=== PATIENT | male | born 1960 | race Caucasian/White ===

== ENCOUNTER 2021-06-12 19:51 | Observation (INO) | payer OTHER ==
[~2021-06-12] VITALS: Ht 180.3 cm; Wt 104.5 kg
[2021-06-12 20:58] LABS: HEMATOCRIT 45.3 % (42.0-52.0); HEMOGLOBIN 15.6 g/dl (13.5-17.5); MEAN CORPUSCULAR HEMOGLOBIN 30.3 pg (27.0-33.0); MEAN CORPUSCULAR HGB CONC 34.4 g/dl (32.0-36.5); PLATELET COUNT, AUTOMATED 217 10^3/uL (150-450); RED BLOOD COUNT 5.15 10^6/uL (4.30-6.10); WHITE BLOOD COUNT 9.8 10^3/uL (4.0-10.0)
[2021-06-12] MEDS ORDERED: PROV108A INH (21:05)
[2021-06-12] MEDS ORDERED: ASPI81TA26 PO (21:18)
[2021-06-12] MEDS ORDERED: INCR1INH INH ×2 (21:18→22:31)
[2021-06-12] MEDS ORDERED: TOPR25TA PO (21:18)
[2021-06-12] MEDS ORDERED: SPIR-10 PO ×2 (21:18→22:31)
[2021-06-12] MEDS ORDERED: MELO15TA28 PO ×2 (21:18→22:31)
[2021-06-12] MEDS ORDERED: KEPP1TAB PO ×2 (21:18→22:31)
[2021-06-12] MEDS ORDERED: BUPR-69 PO (21:18)
[2021-06-12] MEDS ORDERED: BUSP10TA PO (21:18)
[2021-06-12] MEDS ORDERED: [UNRECOGNIZED DRUG - OTHER] (21:18)
[2021-06-12] MEDS ORDERED: MULT1TAB8 PO (21:18)
[2021-06-12] MEDS ORDERED: FENO48TA8 PO (21:18)
[2021-06-12] MEDS ORDERED: LYRI150C PO (21:18)
[2021-06-12] MEDS ORDERED: TOPA100T12 PO ×2 (21:18→22:31)
[2021-06-12] MEDS ORDERED: LIPI20TA PO (21:18)
[2021-06-12] MEDS ORDERED: VIMP100T PO ×2 (21:18→22:31)
[2021-06-12 21:20] LABS: AMPHETAMINES LEVEL URINE NEGATIVE (NEGATIVE); BARBITURATES URINE NEGATIVE (NEGATIVE); BENZODIAZEPINES URINE NEGATIVE (NEGATIVE); CANNABINOIDS URINE POSITIVE (NEGATIVE); COCAINE METABOLITE URINE NEGATIVE (NEGATIVE); METHADONE URINE NEGATIVE (NEGATIVE); OPIATES URINE NEGATIVE (NEGATIVE); PHENCYCLIDINE URINE NEGATIVE (NEGATIVE)
[2021-06-12 21:30] LABS: RSV AMPLIFICATION NEGATIVE (NEGATIVE)
[2021-06-12 21:36] LABS: ACETAMINOPHEN LEVEL < 2.0 UG/ML (10.0-30.0); ALBUMIN 4.1 GM/DL (3.2-5.2); ALT/SGPT 63 U/L (12-78); BILIRUBIN,DIRECT 0.1 MG/DL (0.0-0.2); BILIRUBIN,TOTAL 0.3 MG/DL (0.2-1.0); BLOOD UREA NITROGEN 32 MG/DL (7-18); CALCIUM LEVEL 9.5 MG/DL (8.8-10.2); CARBON DIOXIDE LEVEL 28 MEQ/L (21-32); CHLORIDE LEVEL 97 MEQ/L (98-107); CREATININE FOR GFR 1.71 MG/DL (0.70-1.30); ETHYL ALCOHOL (ETHANOL) 0.004 % (0.000-0.010); GLOMERULAR FILTRATION RATE 43.5 (>49); GLUCOSE, FASTING 428 MG/DL (70-100); POTASSIUM SERUM 4.4 MEQ/L (3.5-5.1); SALICYLATE LEVEL 3.7 MG/DL (5.0-30.0); SODIUM LEVEL 130 MEQ/L (136-145); TOTAL PROTEIN 7.5 GM/DL (6.4-8.2)
[2021-06-12] MEDS ORDERED: LACOSAMIDE 50 MG TAB (VIMPAT) PO ONE (21:45)
[2021-06-12] MEDS ORDERED: levETIRAcetam 250MG TABLET (KEPPRA) PO ONE (21:45)
[2021-06-12] MEDS ORDERED: LEVEMIR (INSULIN DETEMIR) 1 UNITS/0.01ML SC ONE (22:00)
[2021-06-12 22:07] LABS: HEMOGLOBIN A1c 11.1 %
[2021-06-12] MEDS ORDERED: BUPR150T12 PO (22:31)
[2021-06-12] MEDS ORDERED: PROAAER10 INH (22:31)
[2021-06-12] MEDS ORDERED: ASPI-161 PO (22:31)
[2021-06-12] MEDS ORDERED: ATOR40TA75 PO (22:31)
[2021-06-12] MEDS ORDERED: L-ME15TA5 PO (22:31)
[2021-06-12] MEDS ORDERED: VITMTA PO (22:31)
[2021-06-12] MEDS ORDERED: FENO145T7 PO (22:31)
[2021-06-12] MEDS ORDERED: METO1TAB7 PO (22:31)
[2021-06-12] MEDS ORDERED: HOME MED LIST COMPLETE! XX SCH (22:35)
[2021-06-12] MEDS ORDERED: NS 1,000 ML IV ONE (22:35)
[2021-06-12] MEDS: PREGABALIN 75 MG CAP(LYRICA) PO SCH (23:00)
[2021-06-12] MEDS: TOPIRAMATE (TopAMAX) 100 MG TAB PO SCH (23:00)
[2021-06-12] MEDS ORDERED: GLUCAGON INJ 1MG VIAL SC PRN (23:40)
[2021-06-12] MEDS ORDERED: GLUCOSE 4GM CHEW TABLET PO PRN (23:40)
[2021-06-12] MEDS ORDERED: ALBUTEROL SULFATE 2.5 MG/0.5 ML INH NEB SOLN NEB PRN (23:40)
[2021-06-12] MEDS ORDERED: DEXTROSE 50% 50 ML SYRINGE IV PRN (23:40)
[2021-06-13] MEDS ORDERED: NS 1,000 ML IV ONE (00:10)
[2021-06-13] MEDS: NS 1,000 ML IV SCH ×2 (00:10→09:58)
[2021-06-13] MEDS ORDERED: HALOPERIDOL 5MG/ML VIAL (J1630 PER 1) IM STA (07:13)
[2021-06-13] MEDS ORDERED: LORazepam 2 MG/ML VIAL IM STA (07:13)
[2021-06-13] MEDS ORDERED: diphenhydrAMINE 50MG/ML VIAL (J1200) IM ONE (07:15)
[2021-06-13] MEDS ORDERED: LORazepam 2 MG/ML VIAL As Ordered ONE (07:20)
[2021-06-13] MEDS ORDERED: LORazepam 2 MG/ML VIAL IV PRN (07:25)
[2021-06-13] MEDS ORDERED: HALOPERIDOL 5MG/ML VIAL (J1630 PER 1) IV PRN (07:25)
[2021-06-13] MEDS ORDERED: HALOPERIDOL 5MG/ML VIAL (J1630 PER 1) As Ordered ONE (07:34)
[2021-06-13] MEDS: HumaLOG INSULIN (NovoLOG) PER UNIT SC SCH ×3 (07:48→19:00)
[2021-06-13] MEDS: TIOTROPIUM INHALER/CAPSULE (SPIRIVA) INH SCH (08:00)
[2021-06-13] MEDS ORDERED: MELOXICAM (MOBIC) 7.5 MG TAB PO SCH (09:00)
[2021-06-13] MEDS ORDERED: SPIRONOLACTONE 25 MG TAB PO SCH (09:00)
[2021-06-13] MEDS: PREGABALIN 75 MG CAP(LYRICA) PO SCH ×2 (09:53→20:03)
[2021-06-13] MEDS: MULTIVITAMINS/MINERALS THERAP 1 TAB PO SCH (09:53)
[2021-06-13] MEDS: levETIRAcetam 250MG TABLET (KEPPRA) PO SCH ×2 (09:53→20:04)
[2021-06-13] MEDS: FOLIC ACID 1 MG TAB PO SCH (09:53)
[2021-06-13] MEDS: LACOSAMIDE 50 MG TAB (VIMPAT) PO SCH ×2 (09:53→20:04)
[2021-06-13] MEDS: FENOFIBRATE 145MG TABLET (TRICOR) PO SCH (09:54)
[2021-06-13] MEDS: TOPIRAMATE (TopAMAX) 100 MG TAB PO SCH ×2 (09:54→20:04)
[2021-06-13] MEDS: ATORVASTATIN 20 MG TAB PO SCH (09:54)
[2021-06-13] MEDS: METOPROLOL SUCC (TopROL XL) 50MG **XL** TAB PO SCH (09:57)
[2021-06-13 10:02] LABS: BLOOD UREA NITROGEN 20 MG/DL (7-18); CALCIUM LEVEL 8.7 MG/DL (8.8-10.2); CARBON DIOXIDE LEVEL 29 MEQ/L (21-32); CHLORIDE LEVEL 108 MEQ/L (98-107); CREATININE FOR GFR 1.15 MG/DL (0.70-1.30); GLOMERULAR FILTRATION RATE > 60.0 (>49); GLUCOSE, FASTING 273 MG/DL (70-100); POTASSIUM SERUM 4.3 MEQ/L (3.5-5.1); SODIUM LEVEL 140 MEQ/L (136-145)
[2021-06-13] MEDS: LEVEMIR (INSULIN DETEMIR) 1 UNITS/0.01ML SC SCH (13:50)
[2021-06-13] MEDS ORDERED: traMADol 50 MG TAB PO PRN (18:35)
[2021-06-13] MEDS ORDERED: ACETAMINOPHEN TAB 650MG DOSE (2X325MG) PO PRN (18:35)
[2021-06-13 21:00] VITALS: BP 110/62
[2021-06-14 06:00] VITALS: BP 118/70
[2021-06-14] MEDS: TIOTROPIUM INHALER/CAPSULE (SPIRIVA) INH SCH (06:04)
[2021-06-14 06:05] LABS: HEMATOCRIT 43.3 % (42.0-52.0); HEMOGLOBIN 14.7 g/dl (13.5-17.5); MEAN CORPUSCULAR HEMOGLOBIN 30.4 pg (27.0-33.0); MEAN CORPUSCULAR HGB CONC 33.9 g/dl (32.0-36.5); MEAN CORPUSCULAR VOLUME 89.6 fl (80.0-96.0); PLATELET COUNT, AUTOMATED 204 10^3/uL (150-450); RED BLOOD COUNT 4.83 10^6/uL (4.30-6.10); WHITE BLOOD COUNT 7.7 10^3/uL (4.0-10.0)
[2021-06-14 06:33] LABS: ALBUMIN 3.3 GM/DL (3.2-5.2); ALT/SGPT 59 U/L (12-78); BILIRUBIN,TOTAL 0.5 MG/DL (0.2-1.0); BLOOD UREA NITROGEN 15 MG/DL (7-18); CALCIUM LEVEL 8.6 MG/DL (8.8-10.2); CARBON DIOXIDE LEVEL 25 MEQ/L (21-32); CHLORIDE LEVEL 109 MEQ/L (98-107); CREATININE FOR GFR 1.09 MG/DL (0.70-1.30); GLOMERULAR FILTRATION RATE > 60.0 (>49); GLUCOSE, FASTING 206 MG/DL (70-100); POTASSIUM SERUM 3.8 MEQ/L (3.5-5.1); SODIUM LEVEL 139 MEQ/L (136-145)
[2021-06-14] MEDS ORDERED: METF850T4 PO ×2 (07:47→14:32)
[2021-06-14] MEDS: LEVEMIR (INSULIN DETEMIR) 1 UNITS/0.01ML SC SCH (08:18)
[2021-06-14] MEDS: HumaLOG INSULIN (NovoLOG) PER UNIT SC SCH ×2 (08:19→12:10)
[2021-06-14] MEDS: LACOSAMIDE 50 MG TAB (VIMPAT) PO SCH (08:20)
[2021-06-14] MEDS: FENOFIBRATE 145MG TABLET (TRICOR) PO SCH (08:20)
[2021-06-14] MEDS: MULTIVITAMINS/MINERALS THERAP 1 TAB PO SCH (08:20)
[2021-06-14] MEDS: TOPIRAMATE (TopAMAX) 100 MG TAB PO SCH (08:20)
[2021-06-14] MEDS: levETIRAcetam 250MG TABLET (KEPPRA) PO SCH (08:20)
[2021-06-14] MEDS: ATORVASTATIN 20 MG TAB PO SCH (08:20)
[2021-06-14] MEDS: PREGABALIN 75 MG CAP(LYRICA) PO SCH (08:21)
[2021-06-14] MEDS: FOLIC ACID 1 MG TAB PO SCH (08:22)
[2021-06-14 08:25] VITALS: BP 134/82
[2021-06-14] MEDS: METOPROLOL SUCC (TopROL XL) 50MG **XL** TAB PO SCH (08:25)
[2021-06-14] MEDS ORDERED: PROAAER10 INH ×2 (11:39→14:32)
[2021-06-14] MEDS ORDERED: TOPA100T12 PO ×2 (12:18→14:32)
[2021-06-14] MEDS ORDERED: BUPR150T12 PO ×2 (12:18→14:32)
[2021-06-14] MEDS ORDERED: INCR1INH INH ×2 (12:18→14:32)
[2021-06-14] MEDS ORDERED: METO1TAB7 PO ×2 (12:18→14:32)
[2021-06-14] MEDS ORDERED: SPIR-10 PO ×2 (12:18→14:32)
[2021-06-14] MEDS ORDERED: FENO145T7 PO ×2 (12:18→14:32)
[2021-06-14] MEDS ORDERED: L-ME15TA5 PO ×2 (12:18→14:32)
[2021-06-14] MEDS ORDERED: ATOR40TA75 PO ×2 (12:18→14:32)
[2021-06-14] MEDS ORDERED: LYRI150C PO ×2 (12:18→14:32)
[2021-06-14] MEDS ORDERED: VITMTA PO ×2 (12:18→14:32)
[2021-06-14] MEDS ORDERED: ASPI-161 PO ×2 (12:18→14:32)
[2021-06-14] MEDS ORDERED: KEPP1TAB PO ×2 (12:18→14:32)
[2021-06-14] MEDS ORDERED: VIMP100T PO ×2 (12:18→14:32)
== END 2021-06-14 15:26 | disposition home or self-care (01) ==
LOC: M ED 19:51 → M ED INP 22:28 → ENRESERV 06-13 14:25 → M MSPAV 06-13 17:45
PROVIDERS: ADMIT Internal Medicine; ATTEND Internal Medicine
DX: F33.1 Major depressive disorder, recurrent, moderate (principal); F41.1 Generalized anxiety disorder; R45.851 Suicidal ideations; E11.65 Type 2 diabetes mellitus with hyperglycemia; N17.9 Acute kidney failure, unspecified; E87.1 Hypo-osmolality and hyponatremia; E78.5 Hyperlipidemia, unspecified; I10 Essential (primary) hypertension; G40.909 Epilepsy, unspecified, not intractable, without status epilepticus; M54.9 Dorsalgia, unspecified; J45.909 Unspecified asthma, uncomplicated; Z86.73 Personal history of transient ischemic attack (TIA), and cerebral infarction without residual deficits; Z79.899 Other long term (current) drug therapy; Z79.82 Long term (current) use of aspirin; Z79.84 Long term (current) use of oral hypoglycemic drugs; Z79.1 Long term (current) use of non-steroidal anti-inflammatories (NSAID); F17.210 Nicotine dependence, cigarettes, uncomplicated
CPT/HCPCS: 36415; 71045; 80048; 80053; 80076; 80143; 80307; 82077; 83036; 84443; 85027; 87631; 93005; 96361; 96372; 96374; 99285; J1200; J1630; J2060

== ENCOUNTER 2021-06-19 14:24 | Emergency (ER) | payer OTHER ==
[~2021-06-19] VITALS: Ht 177.8 cm; Wt 108.5 kg
[~2021-06-19 14:24] MED LIST: ASPI-161 PO; ASPI81TA26 PO; ATOR40TA75 PO; BUPR-69 PO; BUPR150T12 PO; BUSP10TA PO; FENO145T7 PO; FENO48TA8 PO; INCR1INH INH; KEPP1TAB PO; L-ME15TA5 PO; LIPI20TA PO; LYRI150C PO; MELO15TA28 PO; METF850T4 PO; METO1TAB7 PO; MULT1TAB8 PO; PROAAER10 INH; PROV108A INH; SPIR-10 PO; TOPA100T12 PO; TOPR25TA PO; VIMP100T PO; VITMTA PO; [UNRECOGNIZED DRUG - OTHER]
[2021-06-19 19:10] VITALS: BP 135/84
== END 2021-06-19 19:14 | disposition home or self-care (01) ==
LOC: M ED 14:24
DX: F33.9 Major depressive disorder, recurrent, unspecified (principal); E11.9 Type 2 diabetes mellitus without complications; I10 Essential (primary) hypertension; J45.909 Unspecified asthma, uncomplicated; F31.9 Bipolar disorder, unspecified; E78.9 Disorder of lipoprotein metabolism, unspecified; R56.9 Unspecified convulsions; Z91.51 Personal history of suicidal behavior; Z87.891 Personal history of nicotine dependence; Z79.899 Other long term (current) drug therapy; Z79.82 Long term (current) use of aspirin; Z79.84 Long term (current) use of oral hypoglycemic drugs

== ENCOUNTER 2021-07-15 11:50 | Emergency (ER) | payer OTHER ==
[~2021-07-15] VITALS: Ht 180.3 cm; Wt 133.1 kg
[2021-07-15 15:33] LABS: BASO # 0.1 10^3/uL (0.0-0.2); BASO % 0.5 % (0.0-1.0); EOS # 0.3 10^3/uL (0.0-0.5); EOS % 2.2 % (0.0-3.0); HEMATOCRIT 44.1 % (42.0-52.0); HEMOGLOBIN 15.2 g/dl (13.5-17.5); LYMPH # 2.4 10^3/uL (1.5-5.0); LYMPH % 16.4 % (24.0-44.0); MEAN CORPUSCULAR HEMOGLOBIN 29.6 pg (27.0-33.0); MEAN CORPUSCULAR HGB CONC 34.5 g/dl (32.0-36.5); MEAN CORPUSCULAR VOLUME 85.8 fl (80.0-96.0); MONO # 0.7 10^3/uL (0.0-0.8); MONO % 4.9 % (2.0-8.0); NEUTROPHILS # 11.1 10^3/uL (1.5-8.5); NEUTROPHILS % 75.2 % (36.0-66.0); PLATELET COUNT, AUTOMATED 355 10^3/uL (150-450); RED BLOOD COUNT 5.14 10^6/uL (4.30-6.10); WHITE BLOOD COUNT 14.8 10^3/uL (4.0-10.0)
[2021-07-15] MEDS ORDERED: ISOVUE-370 76% 100ML VIAL As Ordered ONE (15:41)
[2021-07-15 15:52] LABS: ALBUMIN 3.5 GM/DL (3.2-5.2); ALT/SGPT 33 U/L (12-78); BILIRUBIN,DIRECT < 0.1 MG/DL (0.0-0.2); BILIRUBIN,TOTAL 0.4 MG/DL (0.2-1.0); TOTAL PROTEIN 8.1 GM/DL (6.4-8.2)
[2021-07-15 16:22] LABS: ERYTHROCYTE SEDIMENTATION RATE 58 mm/hr (0-20)
[2021-07-15] MEDS ORDERED: VANCOMYCIN HCL 2,000 MG in IV FLUID PLACE HOLDER 1 EA IV ONE (16:25)
[2021-07-15] MEDS ORDERED: VANCOMYCIN HCL 1,000 MG, VIAL MATE ADAPTER 1 EACH in NS 250 ML IV ONE ×2 (17:00→18:00)
[2021-07-15 17:14] VITALS: BP 143/87
[2021-07-15] MEDS ORDERED: DOXY-443 PO (17:43)
== END 2021-07-15 17:51 | disposition home or self-care (01) ==
LOC: M ED 11:50
DX: L03.311 Cellulitis of abdominal wall (principal); E11.9 Type 2 diabetes mellitus without complications; I10 Essential (primary) hypertension; E78.5 Hyperlipidemia, unspecified; G40.909 Epilepsy, unspecified, not intractable, without status epilepticus; F33.9 Major depressive disorder, recurrent, unspecified; F41.9 Anxiety disorder, unspecified; F20.9 Schizophrenia, unspecified; F43.10 Post-traumatic stress disorder, unspecified; Z79.899 Other long term (current) drug therapy; Z79.84 Long term (current) use of oral hypoglycemic drugs; Z79.82 Long term (current) use of aspirin; F17.210 Nicotine dependence, cigarettes, uncomplicated; F12.20 Cannabis dependence, uncomplicated
CPT/HCPCS: 72193; 80047; 80076; 83605; 85025; 85652; 86140; 87040; 96365; 99283; J3370; Q9967